=== PATIENT | male | born 1995 | race Caucasian/White ===

== ENCOUNTER 2017-10-16 16:51 | Emergency (ER) | payer BC, OTHER ==
--- NOTE | 2017-10-16 17:55 | EDPHY ---
H & P Time Seen by Provider: 10/16/17 17:44 HPI/ROS: CHIEF COMPLAINT: Sore throat x3 days HISTORY OF PRESENT ILLNESS: 22-year-old immunocompetent male complaining of 3 days of sore throat without URI symptoms. Positive fever. Believes he has strep. No trismus no drooling. No chest pain. No rash. No abdominal pain. No testicular pain. No cough. REVIEW OF SYSTEMS: A ten point review of systems was performed and is negative with the exception of the items mentioned in the HPI PAST MEDICAL & SURGICAL HISTORY: No pertinent medical or surgical history SOCIAL HISTORY: Nonsmoker PHYSICAL EXAM (Prior to examination, patient consented to physical exam, hands were washed and my usual and customary physical exam procedures followed) 1) GENERAL: Well-developed, well-nourished, alert and oriented. Appears to be in no acute distress. 2) HEAD: Normocephalic, atraumatic 3) HEENT: Pupils equal, round, reactive to light bilaterally. Sclera anicteric. Oropharynx: Bilateral tonsils are symmetrically enlarged with exudate, no pointing of the uvula, no hot potato voice, no trismus no drooling, Ears bilaterally with normal tympanic membranes. 4) NECK: Full range of motion, no meningeal signs. Positive submandibular adenopathy bilaterally. Tender. 5) LUNGS: Clear auscultation bilaterally, no wheezes, no rhonchi, no retractions. 6) HEART: Regular rate and rhythm, no murmur, no heave, no gallop. 7) ABDOMEN: No guarding, no rebound, no focal tenderness, negative McBurney's, negative Merlos's, negative Rovsing's, negative peritoneal sign, no splenomegaly 8) MUSCULOSKELETAL: Moving all extremities, no focal areas of tenderness, no obvious trauma. No peripheral edema or discoloration. 9) BACK: No CVA tenderness, no midline vertebral tenderness, no fluctuance, no step-off, no obvious trauma, no visual or palpable abnormality. 10) SKIN: No rash, no petechiae. 11) Psychiatric: Patient is oriented X 3, there is no agitation. DIFFERENTIAL DIAGNOSIS: In no particular include but limited to strep pharyngitis, viral pharyngitis, mononucleosis, epiglottitis Smoking Status: Never smoked Constitutional: Initial Vital Signs Temperature (C) 36.7 C 10/16/17 17:27 Heart Rate 81 10/16/17 17:27 Respiratory Rate 16 10/16/17 17:27 Blood Pressure 96/59 L 10/16/17 17:27 O2 Sat (%) 98 10/16/17 17:27 O2 Delivery Mode Room Air Allergies/Adverse Reactions: Penicillins Allergy (Verified 10/16/17 17:27) Sulfa (Sulfonamide Antibiotics) Allergy (Verified 10/16/17 17:27) MDM/Departure - MDM ED Course/Re-evaluation: High clinical suspicion for strep pharyngitis recommended empiric treatment. Patient has a penicillin allergy. Will be started on azithromycin. He is started on Medrol Dosepak. Given the ENT follow-up information. No evidence of peritonsillar abscess. Doubt epiglottitis. Feels comfortable being discharged. Usual and customary pharyngitis precautions instructions provided. I saw this patient independently based on established practice protocols. Care of patient under supervision of secondary supervising physician Dr Iniguez. - Depart Disposition: Home, Routine, Self-Care Clinical Impression: Acute streptococcal pharyngitis Condition: Good Instructions: Strep Throat (ED) Additional Instructions: Return to the ER immediately if you cannot swallow, have drooling, fevers, neck stiffness, cannot open your jaw, or any other symptoms that concern you. Referrals: Ramon Zaman MD [Medical Doctor] - As per Instructions
[2017-10-16 18:07] VITALS: BP 118/72
[2017-10-16] MEDS ORDERED: AZITHROMYCIN 250 MG TAB PO ONE (18:11)
[2017-10-16] MEDS ORDERED: DEXAMETHASONE 4 MG TAB PO ONE (18:13)
[2017-10-16] MEDS ORDERED: DEXAMETHASONE 4 MG TAB ONE (18:14)
== END 2017-10-16 18:17 | disposition home or self-care (01) ==
DX: J02.0 Streptococcal pharyngitis (principal)